=== PATIENT | male | born 1965 | race Caucasian/White ===

== ENCOUNTER 2021-12-19 05:53 | Inpatient (IN) ==
[2021-12-13 11:27] LABS: Basophils # 0.1 10*3/uL (0.0-0.2); Basophils % 0.9 % (0.0-0.8); Eosinophils % 0.4 % (0.00-10.9); Hematocrit 44.6 VOL% (42.0-52.0); Immature Granulocytes % 0.3 %; Immature Granulocytes Absolute 0.03 #; Lymphocytes # 2.2 10*3/uL (1.4-4.0); Lymphocytes % 22.6 % (21.2-54.2); Mean Corpuscular HGB Conc 33.6 GM/DL (32-36); Mean Corpuscular Volume 89.7 FL (87-102); Mean Platelet Volume 10.4 FL (9.6-12.0); Monocytes % 8.3 % (1.7-12.7); Neutrophils % 67.5 % (38.7-73.9); Platelet Count 291 T/CUMM (130-400); Red Blood Count 4.97 MC/CUMM (3.8-5.5); Red Cell Distribution Width 13.4 % (9.3-17.3); White Blood Count 9.7 T/CUMM (4-12)
[2021-12-13 11:51] LABS: Albumin 3.6 G/DL (3.4-5.0); Bilirubin,Total 0.5 MG/DL (0.20-1.00); Calcium 9.3 MG/DL (8.5-10.1); Osmolality,Calculated 275.7 MOS/KG (273-304); Potassium 5.1 MMOL/L (3.5-5.1); Total Protein 7.3 G/DL (6.4-8.2)
[2021-12-19] MEDS ORDERED: LACTATED RINGERS 1,000 ML IV SCH (06:00)
[2021-12-19] MEDS ORDERED: ALVIMOPAN 12 MG CAPSULE PO ONE (06:30)
[2021-12-19] MEDS ORDERED: GENTAMICIN 80 MG/2 ML VIAL ONE (06:32)
[2021-12-19] MEDS ORDERED: fentaNYL 100 MCG/2 ML VIAL ONE ×2 (06:33→10:48)
[2021-12-19] MEDS ORDERED: MIDAZOLAM 2 MG/2 ML VIAL ONE (06:33)
[2021-12-19] MEDS ORDERED: LIDOCAINE 1% 5 ML VIAL ONE (06:34)
[2021-12-19] MEDS ORDERED: ROPIVACAINE 0.5% 30 ML VIAL ONE ×2 (06:34→06:52)
[2021-12-19] MEDS ORDERED: FAMOTIDINE 20 MG TABLET PO ONE (06:41)
[2021-12-19] MEDS ORDERED: ACETAMINOPHEN 500 MG TABLET PO ONE (06:41)
[2021-12-19] MEDS ORDERED: DIAZEPAM 5 MG TABLET PO ONE (06:41)
[2021-12-19] MEDS ORDERED: LIDOCAINE 2% 5 ML VIAL ONE (06:45)
[2021-12-19] MEDS ORDERED: ROCURONIUM 50 MG/5 ML VIAL IV ONE ×2 (06:45→08:15)
[2021-12-19] MEDS ORDERED: propofoL 200 MG/20 ML VIAL IV ONE (06:45)
[2021-12-19] MEDS ORDERED: ONDANSETRON 4 MG/2 ML VIAL ONE (06:45)
[2021-12-19] MEDS ORDERED: INDOCYANINE GREEN 25 MG VIAL IV ONE (06:53)
[2021-12-19] MEDS ORDERED: MANNITOL 12.5 GM/50 ML VIAL IV ONE (06:53)
[2021-12-19] MEDS ORDERED: GLYCOPYRROLATE 0.4 MG/2 ML VIAL ONE (08:07)
[2021-12-19 08:44] LABS: Mucus,Urine Occasional /LPF (Occasional); RBC,Urine 3 /HPF (0-4)
[2021-12-19 08:45] LABS: Bilirubin,Urine Negative (Negative); Blood, Urine Trace mg/dL (Negative); Glucose,Urine (UA) Negative (Negative); Ketones,Urine Negative (Negative); Nitrite,Urine Negative (Negative); Protein,Urine Negative (Negative); Urine Appearance Clear (Clear); Urine Color Yellow (Yellow); Urine Specific Gravity 1.025 (1.001-1.035); Urine Urobilinogen 0.2 eU/dL (<2.0); Urine pH 5.5 (4.5-8.0)
[2021-12-19] MEDS ORDERED: SUGAMMADEX 200 MG/2 ML VIAL IV ONE (10:35)
[2021-12-19] MEDS ORDERED: SEVOFLURANE 1 UNIT/15 MINUTE INH ONE (11:10)
[2021-12-19] MEDS ORDERED: PROMETHAZINE 25 MG/1 ML VIAL IM PRN (11:18)
[2021-12-19] MEDS ORDERED: diphenhydrAMINE 50 MG/1 ML VIAL IV PRN (11:18)
[2021-12-19] MEDS ORDERED: ONDANSETRON 4 MG/2 ML VIAL IV PRN (11:36)
[2021-12-19] MEDS ORDERED: HYDROmorphone 1 MG/1 ML SYRINGE IV PRN (11:36)
[2021-12-19 11:50] LABS: Basophils # 0.1 10*3/uL (0.0-0.2); Basophils % 0.6 % (0.0-0.8); Eosinophils % 0.2 % (0.00-10.9); Hematocrit 43.8 VOL% (42.0-52.0); Hemoglobin 14.4 GM/DL (14.0-18.0); Immature Granulocytes % 0.6 %; Immature Granulocytes Absolute 0.08 #; Lymphocytes # 1.7 10*3/uL (1.4-4.0); Lymphocytes % 11.9 % (21.2-54.2); Mean Corpuscular HGB Conc 32.9 GM/DL (32-36); Mean Corpuscular Volume 91.6 FL (87-102); Mean Platelet Volume 10.3 FL (9.6-12.0); Monocytes % 5.9 % (1.7-12.7); Neutrophils % 80.8 % (38.7-73.9); Platelet Count 260 T/CUMM (130-400); Red Blood Count 4.78 MC/CUMM (3.8-5.5); Red Cell Distribution Width 13.4 % (9.3-17.3); White Blood Count 14.1 T/CUMM (4-12)
[2021-12-19 12:09] LABS: Calcium 8.3 MG/DL (8.5-10.1); Osmolality,Calculated 279.5 MOS/KG (273-304); Potassium 4.7 MMOL/L (3.5-5.1)
[2021-12-19] MEDS: SODIUM CHLORIDE 0.9% 1,000 ML IV SCH ×2 (12:54→20:25)
[2021-12-19] MEDS: ACETAMINOPHEN 325 MG TABLET PO SCH ×2 (12:54→16:59)
[2021-12-19] MEDS: HYDROmorphone 1 MG/1 ML SYRINGE IV PRN ×2 (13:59→20:25)
[2021-12-19] MEDS: OXYBUTYNIN 5 MG TABLET PO SCH ×2 (14:41→20:24)
[2021-12-19] MEDS: oxyCODONE/ACETAMINOPHEN 5-325 MG TABLET PO PRN (16:56)
[2021-12-19] MEDS: ALVIMOPAN 12 MG CAPSULE PO SCH (20:24)
[2021-12-19] MEDS: PANTOPRAZOLE 40 MG TABLET PO SCH (20:24)
[2021-12-19] MEDS: ONDANSETRON 4 MG/2 ML VIAL IV PRN (20:26)
[2021-12-20] MEDS: oxyCODONE/ACETAMINOPHEN 5-325 MG TABLET PO PRN ×3 (00:14→23:11)
[2021-12-20] MEDS: ACETAMINOPHEN 325 MG TABLET PO SCH ×5 (00:15→23:11)
[2021-12-20] MEDS: HYDROmorphone 1 MG/1 ML SYRINGE IV PRN ×5 (03:49→20:43)
[2021-12-20] MEDS: ONDANSETRON 4 MG/2 ML VIAL IV PRN ×4 (03:49→20:43)
[2021-12-20] MEDS: SODIUM CHLORIDE 0.9% 1,000 ML IV SCH (04:29)
[2021-12-20] MEDS: GENTAMICIN INJ 160 MG in SODIUM CHLORIDE 0.9% 100 ML IV SCH ×2 (04:32→05:42)
[2021-12-20 06:03] LABS: Basophils % 0.2 % (0.0-0.8); Hematocrit 40.1 VOL% (42.0-52.0); Hemoglobin 13.5 GM/DL (14.0-18.0); Immature Granulocytes % 0.8 %; Immature Granulocytes Absolute 0.14 #; Lymphocytes # 1.1 10*3/uL (1.4-4.0); Lymphocytes % 6.3 % (21.2-54.2); Mean Corpuscular HGB Conc 33.7 GM/DL (32-36); Mean Corpuscular Volume 89.3 FL (87-102); Mean Platelet Volume 11.3 FL (9.6-12.0); Monocytes % 5.1 % (1.7-12.7); Neutrophils % 87.6 % (38.7-73.9); Platelet Count 243 T/CUMM (130-400); Red Blood Count 4.49 MC/CUMM (3.8-5.5); Red Cell Distribution Width 13.2 % (9.3-17.3); White Blood Count 18.1 T/CUMM (4-12)
[2021-12-20 06:46] LABS: Calcium 8.1 MG/DL (8.5-10.1); Osmolality,Calculated 274.8 MOS/KG (273-304); Potassium 3.9 MMOL/L (3.5-5.1)
[2021-12-20] MEDS ORDERED: MAGNESIUM SULF RIDER 2 GM/50 ML PREMIX IV PRN (07:08)
[2021-12-20] MEDS ORDERED: MAGNESIUM SULF RIDER 4 GM/100 ML PREMIX IV PRN (07:08)
[2021-12-20] MEDS: LEVOFLOXACIN 500 MG TABLET PO SCH (08:20)
[2021-12-20] MEDS: ALVIMOPAN 12 MG CAPSULE PO SCH ×2 (08:20→20:43)
[2021-12-20] MEDS: PANTOPRAZOLE 40 MG TABLET PO SCH (20:43)
[2021-12-21] MEDS: ONDANSETRON 4 MG/2 ML VIAL IV PRN ×3 (02:06→13:36)
[2021-12-21] MEDS: HYDROmorphone 1 MG/1 ML SYRINGE IV PRN ×3 (02:07→15:45)
[2021-12-21] MEDS: oxyCODONE/ACETAMINOPHEN 5-325 MG TABLET PO PRN ×3 (05:12→20:02)
[2021-12-21] MEDS: ACETAMINOPHEN 325 MG TABLET PO SCH ×4 (05:12→23:05)
[2021-12-21 07:25] LABS: Basophils % 0.2 % (0.0-0.8); Hematocrit 41.2 VOL% (42.0-52.0); Hemoglobin 14.3 GM/DL (14.0-18.0); Immature Granulocytes % 0.5 %; Immature Granulocytes Absolute 0.08 #; Lymphocytes # 1.2 10*3/uL (1.4-4.0); Lymphocytes % 7.1 % (21.2-54.2); Mean Corpuscular HGB Conc 34.7 GM/DL (32-36); Mean Corpuscular Volume 87.5 FL (87-102); Mean Platelet Volume 10.6 FL (9.6-12.0); Monocytes % 8.5 % (1.7-12.7); Neutrophils % 83.7 % (38.7-73.9); Platelet Count 276 T/CUMM (130-400); Red Blood Count 4.71 MC/CUMM (3.8-5.5); Red Cell Distribution Width 13.2 % (9.3-17.3); White Blood Count 16.7 T/CUMM (4-12)
[2021-12-21 07:42] LABS: Calcium 8.8 MG/DL (8.5-10.1); Osmolality,Calculated 270.1 MOS/KG (273-304); Potassium 3.4 MMOL/L (3.5-5.1)
[2021-12-21 07:50] LABS: Band Neutrophils 2 % (0-10); Hypochromia 1+; Lymphocytes 11 % (20-55); Microcytosis 1+; Ovalocytes Slight; Segmented Neutrophils 82 % (50-85); Total Cells Counted 100
[2021-12-21 07:51] LABS: Platelet Estimate Normal
[2021-12-21] MEDS ORDERED: POTASSIUM CHLORIDE 20 MEQ TABLET PO ONE ×2 (08:02→19:13)
[2021-12-21] MEDS: ALVIMOPAN 12 MG CAPSULE PO SCH ×2 (08:18→20:02)
[2021-12-21] MEDS: LEVOFLOXACIN 500 MG TABLET PO SCH (08:18)
[2021-12-21] MEDS: PANTOPRAZOLE 40 MG TABLET PO SCH (20:02)
[2021-12-22 05:04] LABS: Basophils % 0.4 % (0.0-0.8); Eosinophils % 0.2 % (0.00-10.9); Hematocrit 39.1 VOL% (42.0-52.0); Hemoglobin 13.3 GM/DL (14.0-18.0); Immature Granulocytes % 0.4 %; Immature Granulocytes Absolute 0.04 #; Lymphocytes # 1.8 10*3/uL (1.4-4.0); Lymphocytes % 17.8 % (21.2-54.2); Mean Corpuscular Volume 88.5 FL (87-102); Mean Platelet Volume 10.9 FL (9.6-12.0); Monocytes % 10.9 % (1.7-12.7); Neutrophils % 70.3 % (38.7-73.9); Platelet Count 243 T/CUMM (130-400); Red Blood Count 4.42 MC/CUMM (3.8-5.5); Red Cell Distribution Width 13.1 % (9.3-17.3); White Blood Count 10.3 T/CUMM (4-12)
[2021-12-22 05:18] LABS: Calcium 8.6 MG/DL (8.5-10.1); Osmolality,Calculated 273.8 MOS/KG (273-304); Potassium 3.8 MMOL/L (3.5-5.1)
[2021-12-22] MEDS: ACETAMINOPHEN 325 MG TABLET PO SCH (06:00)
[2021-12-22 07:38] VITALS: BP 126/84
[2021-12-22] MEDS: LEVOFLOXACIN 500 MG TABLET PO SCH (08:20)
[2021-12-22] MEDS: ALVIMOPAN 12 MG CAPSULE PO SCH (08:20)
== END 2021-12-22 09:17 | disposition home or self-care (01) | DRG 658 ==
LOC: N.OR 05:53 → N.SDSINP 05:54 → N.3E 12:21
PROVIDERS: ADMIT Surgery; ATTEND Surgery